=== PATIENT | female | born 1980 | race Hispanic/Latino ===

== ENCOUNTER 2022-01-30 00:01 | Emergency (ER) | payer OTHER ==
[~2022-01-30] VITALS: Ht 154.9 cm; Wt 63.5 kg
[~2022-01-30 00:01] MED LIST: LIDOP TP; ORPH-43 PO
[2022-01-30 00:07] VITALS: BP 115/82
[2022-01-30] MEDS ORDERED: OSEL75 PO (01:18)
[2022-01-30] MEDS ORDERED: OSELTAMIVIR PHOSPHATE 75 MG CAP PO SCH (01:30)
== END 2022-01-30 01:20 | disposition home or self-care (01) ==
LOC: EDH 00:01
DX: J10.1 Influenza due to other identified influenza virus with other respiratory manifestations (principal); Z20.822 Contact with and (suspected) exposure to COVID-19; M19.90 Unspecified osteoarthritis, unspecified site; M32.9 Systemic lupus erythematosus, unspecified; Z88.6 Allergy status to analgesic agent; Z88.8 Allergy status to other drugs, medicaments and biological substances; Z79.899 Other long term (current) drug therapy; Z98.890 Other specified postprocedural states
CPT/HCPCS: 87635; 87804 ×2; 99283; C9803

== ENCOUNTER 2024-03-28 17:28 | Emergency (ER) | payer OTHER ==
[~2024-03-28] VITALS: Ht 154.9 cm; Wt 70.3 kg
[~2024-03-28 17:28] MED LIST changes: -ORPH-43 PO; +ORPH100T4 PO; +OSEL75 PO
[2024-03-28 19:16] VITALS: BP 124/74; PULSE 91; RESP 18; O2SAT 97
[2024-03-28] MEDS: traMADol HCL 50 MG TABLET PO ONE (19:59)
== END 2024-03-28 20:12 | disposition home or self-care (01) ==
LOC: EDH 17:28
DX: S09.90XA Unspecified injury of head, initial encounter (principal); W10.9XXA Fall (on) (from) unspecified stairs and steps, initial encounter; Y93.89 Activity, other specified; Y92.89 Other specified places as the place of occurrence of the external cause; Y99.8 Other external cause status
CPT/HCPCS: 70450; 81025

== ENCOUNTER 2024-09-11 13:07 | Emergency (ER) | payer MEDICARE, OTHER ==
[~2024-09-11] VITALS: Ht 154.9 cm; Wt 70.3 kg
[2024-09-11 13:47] VITALS: BP 122/73; PULSE 124; RESP 18; TEMP 101.7
--- NOTE | 2024-09-11 14:10 | ERN ---
ED Note History of Present Illness Stated Complaint: FLU SYMPTOMS Chief Complaint: Cough Time Seen by MD: 13:36 Dictation: 43-year-old female with a history of MS, lupus, arthritis and DE presents to the ED for evaluation of headache onset last night. Patient is complaining of fever, cough, congestion, chronic right leg pain and back pain, but denies any other associated symptoms at this time. Patient reports her brother is sick with the flu. Allergies: Coded Allergies: ibuprofen (Unverified Allergy, Unknown, 04/02/19) natalizumab (Unverified Allergy, Unknown, 04/02/19) Home Meds Active Scripts Oseltamivir Phosphate (Tamiflu) 75 Mg Cap, 75 MG PO BID for 5 Days, #10 CAP Prov:GERTRUDE LOPEZ MD 09/11/24 Oseltamivir Phosphate (Tamiflu) 75 Mg Cap, 75 MG PO BID for 5 Days, #10 CAP Prov:JOSEPH LEIGH MD 01/30/22 Orphenadrine Citrate (Orphenadrine Citrate) 100 Mg Tablet.er, 100 MG PO [id number], #20 TAB 0 Refills Prov:MIKEL GOMEZ MD 09/04/21 Lidocaine (Lidoderm Patch 5%) 1 Patch Patch, 1 PATCH TP DAILY PRN for PAIN LEVEL 1 TO 5, #30 ADH.PATCH 0 Refills Prov:MIKEL GOMEZ MD 09/04/21 Past Medical History Past Medical History: Arthritis, DE, Other Additional Past Medical Hx: MS, LUPUS, Surgical History: Other Surgical History Other: THYRIOD, BLADDER LIFT Social History: ETOH, Lives with family History: Not Applicable LMP: Sep 07, 2024 Review of System Dictation Constitutional: Positive for fever negative for chills, and weight loss Eyes: Negative for injury, pain,redness, and discharge ENT: Positive for nasal congestion Negative for injury,pain or swelling Cardiovascular: Negative for chest pain, palpitations, and edema Respiratory: Positive for cough Negative for shortness of breath and wheezing, Abdomen/GI: Negative for abdominal pain, nausea, vomiting, diarrhea, and constipation Back: Negative for injury and pain : Negative for injury, bleeding and discharge MS/Extremity: Positive for chronic leg pain Negative for injury and deformity Skin: Negative for rash, and discoloration Neuro: Positive for headache negative for weakness, numbness, tingling, and seizure Psych: Negative for suicide ideation, homicidal ideation, and hallucinations Initial Vital Sign VS Vital Signs Date Time Temp Pulse Resp B/P (MAP) Pulse Ox O2 Delivery O2 Flow Rate FiO2 09/11/24 13:47 101.7 124 18 122/73 98 Room Air 0 Physical Exam Dictation General: awake, alert, patient is febrile Head/Face: Normocephalic, atraumatic Eyes: PERRL, EOMI, vision at baseline ENT: oral cavity clear, TMs clear, no signs of infection Neck: Trachea midline, supple, no nuchal rigidity Cardiovascular: Tachycardic, No MRGs, no JVD Respiratory: CTAB, no respiratory distress, No rales or wheezes Abdomen: Soft, non-tender, non-distended, normal bowel sounds, no guarding or rebound. Skin: Warm, dry, normal turgor, no rash MS/Extremity: Pulses equal, no cyanosis, neurovascular intact, FROM Neuro: COAx4, GCS 15, strength 5/5, CN 2-12 intact, normal cerebellar exam, normal gait, Psych: Normal behavior, mood, and affect normal Results (Laboratory/Radiology) Laboratory/Radiology Laboratory Tests Test 09/11/24 13:53 09/11/24 15:01 Influenza Type A Antigen Positive For Type A Influenza Type B Antigen Negative For Type B SARS-CoV-2, RNA, NAAT NEGATIVE SARS CoV-2 Group A Streptococcus Rapid negative (NEGATIVE) White Blood Count 10.3 K/uL (4.8-10.8) Red Blood Count 4.59 MIL/uL (4.00-5.50) Hemoglobin 12.3 g/dL (12.0-16.0) Hematocrit 38.3 % (36-48) Mean Corpuscular Volume 83.4 fL (79-99) Mean Corpuscular Hemoglobin 26.8 pg (27.0-33.0) L Mean Corpuscular Hemoglobin Concent 32.1 g/dL (32.0-36.0) Red Cell Distribution Width 14.6 % (11.0-15.5) Platelet Count 251 K/uL (130-400) Mean Platelet Volume 10.9 fL (7.5-10.5) H Immature Granulocyte % (Auto) 0.7 % (0-1) Neutrophils (%) (Auto) 91.1 % (40.0-77.0) H Lymphocytes (%) (Auto) 1.8 % (21.0-51.0) L Monocytes (%) (Auto) 6.0 % (3.0-13.0) Eosinophils (%) (Auto) 0.2 % (0.0-8.0) Basophils (%) (Auto) 0.2 % (0.0-5.0) Neutrophils # (Auto) 9.4 K/uL (1.8-7.7) H Lymphocytes # (Auto) 0.2 K/uL (1.0-4.8) L Monocytes # (Auto) 0.6 K/uL (0.1-1.0) Eosinophils # (Auto) 0.02 K/uL (0.00-0.70) Basophils # (Auto) 0.02 K/uL (0.00-0.20) Absolute Immature Granulocyte (auto 0.07 K/uL (0-1) Nucleated Red Blood Cells 0.0 % (0.0-0.19) White Cell Morphology Comment See comments Sodium Level 135 mmol/L (136-145) L Potassium Level 3.2 mmol/L (3.5-5.1) L Chloride Level 98 mmol/L (101-111) L Carbon Dioxide Level 27 mmol/L (21-32) Blood Urea Nitrogen 5 mg/dL (7-18) L Creatinine 0.7 mg/dL (0.5-1.0) Glomerular Filtration Rate Calc 111 mL/min (>90) Random Glucose 97 mg/dL (70-105) Lactic Acid Level 1.8 mmol/L (0.8-2.5) Total Calcium 8.9 mg/dL (8.5-10.1) Total Bilirubin 0.3 mg/dL (0.2-1.0) Direct Bilirubin 0.1 mg/dL (0.0-0.3) Aspartate Amino Transf (AST/SGOT) 19 U/L (10-37) Alanine Aminotransferase (ALT/SGPT) 22 U/L (12-78) Alkaline Phosphatase 89 U/L (50-136) Total Creatine Kinase 103 U/L (21-232) Troponin I High Sensitivity 8 ng/L (4-50) Total Protein 7.3 g/dL (6.0-8.3) Albumin 3.6 g/dL (3.5-5.0) Labs Reviewed?: Yes EKG Comment: EKG 09/11/2024 time 2:25 p.m. ventricular rate 116, LA 134, QRS D 87, QT 357. Sinus tachycardia, nonspecific T abnormalities, diffuse leads. No STEMI X-RAY Comment: REASON: fever ORDERING PHYSICIAN: GERTRUDE LOPEZ MD PROCEDURE: CXR1VW - CHEST 1VW Exam Type: CHEST 1VW Clinical Information: fever Comparison: None Findings: The lungs are clear of infiltrates. The heart is normal in size. The bony and soft tissue structures of the chest are unremarkable. Impression: Clear lungs. DICTATED BY: JOEL STARKEY MD DATE: 09/11/[address] Scan Comment: REASON: fever ORDERING PHYSICIAN: GERTRUDE LOPEZ MD PROCEDURE: HEAD WO - CT HEAD/BRAIN W/O CONTRAST Exam Type: CT HEAD/BRAIN W/O CONTRAST Clinical Information: fever Comparison: None CT Dose Index (CTDI): 57.33 mGy Dose Length Product (DLP): 956.79 total mGy-cm Findings: The examination is unremarkable. Montoya-white matter junction is preserved. No intra or extra axial lesions or fluid collections are seen. Specifically, montoya and white matter are normal in signal characteristics with normal caliber of ventricles and periventricular cisterns with no evidence of intra or or extra-axial hemorrhage, lacunar infarct, or major territorial infarct, mass, or other abnormality. There are no infarcts. There are no hemorrhages. Periventricular white matter locations are preserved. The orbital contents and structures of the posterior fossa are intact. Impression: Normal CT of the head. This study was performed using dose reduction techniques to include automated exposure control and/or adjustment of the mA and/or kV according to patient size. DICTATED BY: JOEL STARKEY MD DATE: 09/11/24 1444 ED Course ED Course Orders Procedure Category Date Status Time Covid Rna Naat LAB 09/11/24 Complete 13:53 Influenza Type A & B, LAB 09/11/24 Complete Rapid 13:53 Rapid (Group A Strep) LAB 09/11/24 Complete 13:53 12 Lead Ekg Tracing- EKG 09/11/24 Complete Technical 14:14 Basic Metabolic Panel LAB 09/11/24 Complete 14:14 Blood Cult LENIN 09/11/24 In Process 14:14 Cbc With Differential LAB 09/11/24 Complete 14:14 Hepatic Function Panel LAB 09/11/24 Complete 14:14 Creatine Kinase, Total LAB 09/11/24 Complete 14:14 Lactic Acid LAB 09/11/24 Complete 14:14 Troponin I High LAB 09/11/24 Complete Sensitivity 14:14 Urinalysis Profile LAB 09/11/24 Logged 14:14 Chest 1vw RAD 09/11/24 Resulted 14:14 Ct Head/Brain W/O CT 09/11/24 Resulted Contrast 14:14 Ceftriaxone 2gm Vial PHA 09/11/24 Complete (Rocephin 2gm Inj) 14:30 0.9%Nacl 1000ml (Ns PHA 09/11/24 Complete 1000ml) 14:30 Current Medications Medications (Trade) Dose Ordered Sig/Mirlande Route PRN Reason Start Time Stop Time Status Last Admin Dose Admin Ceftriaxone Sodium (Rocephin 2gm Inj) 2 gm ONCE ONCE IVPB 09/11/24 14:30 09/11/24 14:31 DC Sodium Chloride 1,000 ml @ 0 mls/hr ONCE ONCE IV 09/11/24 14:30 09/11/24 14:31 DC Vital Signs Date Time Temp Pulse Resp B/P (MAP) Pulse Ox O2 Delivery O2 Flow Rate FiO2 09/11/24 13:47 101.7 124 18 122/73 98 Room Air 0 Medical Decision Making MDM MDM: Differential diagnosis: Fever, viral syndrome, influenza Rationale: Tests considered and ordered secondary to shared decision making include: labs, ECG and radiology Risk of complication and/or morbidity or mortality of patient management: None Medications-Per medication reconciliation Need for hospitalization: Patient does meet criteria for hospitalization. Need for emergency major/minor surgery: No There are no social concerns with this patient. Prescription drug management Prescriptions will include symptomatic care I independently interpreted the test that were performed, results were reviewed by me and considered findings on radiology if ordered. Medical management and examination interpretation discussions were had by me with other qualified healthcare professionals as indicated for the patient's care. DX & DISP Disposition: Discharge Departure Impression: Primary Impression: Influenza A Condition: Stable Scripts Oseltamivir Phosphate (Tamiflu) 75 Mg Cap 75 MG PO BID for 5 Days, #10 CAP Prov: GERTRUDE LOPEZ MD 09/11/24 Referrals: SELF,REFERRAL (PCP) GERTRUDE LOPEZ MD Sep 11, 2024 14:10
[2024-09-11 14:21] LABS: RAPID GROUP A STREP negative (NEGATIVE)
[2024-09-11 14:25] LABS: SARS-CoV-2, RNA, NAAT NEGATIVE SARS CoV-2 (NEGATIVE)
--- NOTE | 2024-09-11 14:28 | EKG ---
[facility] Test Date: 2024-09-11 Test Time: 14:25:22 Pat Name: SUZANNE HINKLE Department: ED Room: Gender: F [employer]rel [employer] Machine: 08 : 1980 Requested By: GERTRUDE LOPEZ Order Number: [id number] Reading MD: Darinel Worley Measurements Intervals [place] Rate: 116 P: 58 TX: 134 QRS: 28 QRSD: 87 T: 265 QT: 357 QTc: 495 Interpretive Statements Sinus tachycardia Nonspecific T abnormalities, diffuse leads No previous ECG available for comparison Electronically Signed On 09-11-2024 18:25:44 C 40A CREW CHIEF by Darinel Worley Please click the below link to view image of tracing.
[2024-09-11 14:29] LABS: INFLUENZA TYPE B Negative For Type B (NEGATIVE)
[2024-09-11] MEDS: CEFTRIAXONE 2GM VIAL IVPB ONE (14:30)
[2024-09-11] MEDS: 0.9%NACL 1000ML 1,000 ML IV ONE (14:30)
[2024-09-11 14:38] LABS: INFLUENZA TYPE A Positive For Type A (NEGATIVE)
--- NOTE | 2024-09-11 14:48 | HMCIMG ---
Exam Type: CT HEAD/BRAIN W/O CONTRAST Clinical Information: fever Comparison: None CT Dose Index (CTDI): 57.33 mGy Dose Length Product (DLP): 956.79 total mGy-cm Findings: The examination is unremarkable. Montoya-white matter junction is preserved. No intra or extra axial lesions or fluid collections are seen. Specifically, montoya and white matter are normal in signal characteristics with normal caliber of ventricles and periventricular cisterns with no evidence of intra or or extra-axial hemorrhage, lacunar infarct, or major territorial infarct, mass, or other abnormality. There are no infarcts. There are no hemorrhages. Periventricular white matter locations are preserved. The orbital contents and structures of the posterior fossa are intact. Impression: Normal CT of the head. This study was performed using dose reduction techniques to include automated exposure control and/or adjustment of the mA and/or kV according to patient size.
--- NOTE | 2024-09-11 15:18 | HMCIMG ---
Exam Type: CHEST 1VW Clinical Information: fever Comparison: None Findings: The lungs are clear of infiltrates. The heart is normal in size. The bony and soft tissue structures of the chest are unremarkable. Impression: Clear lungs.
[2024-09-11 15:50] LABS: BASOPHILS # (AUTO) 0.02 K/uL (0.00-0.20); BASOPHILS % (AUTO) 0.2 % (0.0-5.0); EOSINOPHILS # (AUTO) 0.02 K/uL (0.00-0.70); EOSINOPHILS % (AUTO) 0.2 % (0.0-8.0); HEMATOCRIT 38.3 % (36-48); IMMATURE GRANULOCYTE ABSOLUTE 0.07 K/uL (0-1); LYMPHOCYTES # (AUTO) 0.2 K/uL (1.0-4.8); LYMPHOCYTES % (AUTO) 1.8 % (21.0-51.0); MEAN CORPUSCULAR HEMOGLOBIN 26.8 pg (27.0-33.0); MEAN CORPUSCULAR HGB CONC 32.1 g/dL (32.0-36.0); MEAN CORPUSCULAR VOLUME 83.4 fL (79-99); MONOCYTES # (AUTO) 0.6 K/uL (0.1-1.0); NEUTROPHILS # (AUTO) 9.4 K/uL (1.8-7.7); NEUTROPHILS % (AUTO) 91.1 % (40.0-77.0); PLATELET COUNT (AUTO) 251 K/uL (130-400); RED BLOOD CELL COUNT(AUTO) 4.59 MIL/uL (4.00-5.50); RED CELL DISTRIBUTION WIDTH 14.6 % (11.0-15.5); WHITE BLOOD COUNT (AUTO) 10.3 K/uL (4.8-10.8)
[2024-09-11 15:58] LABS: CREATININE 0.7 mg/dL (0.5-1.0); POTASSIUM 3.2 mmol/L (3.5-5.1)
[2024-09-11 16:02] LABS: ALBUMIN 3.6 g/dL (3.5-5.0); BILIRUBIN,DIRECT 0.1 mg/dL (0.0-0.3); BILIRUBIN,TOTAL 0.3 mg/dL (0.2-1.0); TOTAL PROTEIN, SERUM 7.3 g/dL (6.0-8.3)
[2024-09-11] MEDS ORDERED: OSEL75 PO (17:39)
== END 2024-09-11 19:13 | disposition home or self-care (01) ==
LOC: EDH 13:07
DX: J10.1 Influenza due to other identified influenza virus with other respiratory manifestations (principal); M19.90 Unspecified osteoarthritis, unspecified site; Z79.899 Other long term (current) drug therapy; Z88.6 Allergy status to analgesic agent; Z20.822 Contact with and (suspected) exposure to COVID-19
CPT/HCPCS: 36415; 70450; 71045; 80048; 80076; 82550; 83605; 84484; 85025; 87040; 87635; 87804; 87880; 93005; 99285

== ENCOUNTER 2024-12-20 20:14 | Emergency (ER) | payer MEDICARE ==
[~2024-12-20] VITALS: Ht 154.9 cm; Wt 75.7 kg
[2024-12-20] MEDS: HYDROcodone/APAP 5/325 1 TAB TABLET PO ONE (20:42)
--- NOTE | 2024-12-20 20:53 | HMCIMG ---
Exam Type: ANKLE COMP 3VWS RT Clinical Information: INJURY SWELLING Comparison: None Findings: Routine views of the ankle reveal no evidence of acute fracture or dislocation. The ankle mortise is intact. There is soft tissue swelling over the lateral malleolus consistent with inversion injury. IMPRESSION: Evidence of inversion injury.
--- NOTE | 2024-12-20 21:15 | ERN ---
ED Note History of Present Illness Stated Complaint: C/O PAIN WITH SWELLING TO RIGHT ANKLE Chief Complaint: Ankle Problem Time Seen by MD: 20:17 Time Seen by Midlevel: 20:17 Dictation: The patient is a 44-year-old female with a history of multiple sclerosis, lupus, arthritis who presents to the emergency department with complaints of right ankle pain after she accidentally misstepped and twisted about an hour prior to arrival. Patient denies any other injuries. Allergies: Coded Allergies: ibuprofen (Unverified Allergy, Unknown, 04/02/19) natalizumab (Unverified Allergy, Unknown, 04/02/19) Home Meds Active Scripts Oseltamivir Phosphate (Tamiflu) 75 Mg Cap, 75 MG PO BID for 5 Days, #10 CAP Prov:GERTRUDE LOPEZ MD 09/11/24 Oseltamivir Phosphate (Tamiflu) 75 Mg Cap, 75 MG PO BID for 5 Days, #10 CAP Prov:JOSEPH LEIGH MD 01/30/22 Orphenadrine Citrate (Orphenadrine Citrate) 100 Mg Tablet.er, 100 MG PO [id number], #20 TAB 0 Refills Prov:MIKEL GOMEZ MD 09/04/21 Lidocaine (Lidoderm Patch 5%) 1 Patch Patch, 1 PATCH TP DAILY PRN for PAIN LEVEL 1 TO 5, #30 ADH.PATCH 0 Refills Prov:MIKEL GOMEZ MD 09/04/21 Past Medical History Past Medical History: Other Additional Past Medical Hx: HX OF MS, HX OF LUPUS Surgical History: Other Surgical History Other: HERNIATED DISC SX; BLADDER LIFT Social History: ETOH, Lives with family History: Not Applicable LMP: December 20, 2024 RN Note Reviewed/Agreed w/PFSH: Yes Review of System Dictation Constitutional: Negative for fever,chills, and weight loss Eyes: Negative for injury, pain,redness, and discharge ENT: Negative for injury,pain or swelling Cardiovascular: Negative for chest pain, palpitations, and edema Respiratory: Negative for shortness of breath, cough, and wheezing, Abdomen/GI: Negative for abdominal pain, nausea, vomiting, diarrhea, and c onstipation Back: Negative for injury and pain : Negative for injury, bleeding and discharge MS/Extremity: Positive for right ankle pain, swelling, injury Skin: Negative for rash, and discoloration Neuro: Negative for headache, weakness, numbness, tingling, and seizure Psych: Negative for suicide ideation, homicidal ideation, and hallucinations Initial Vital Sign VS Vital Signs Date Time Temp Pulse Resp B/P (MAP) Pulse Ox O2 Delivery O2 Flow Rate FiO2 12/20/24 20:17 97.0 56 20 126/73 97 Room Air Physical Exam Dictation Vital Signs reviewed General Appearance: Alert, oriented x 3, no acute distress, well developed, nourished. Head and Face: non-traumatic. Eyes: PERRL, pink conjunctivas, eyelid no trauma, anterior chamber with arcus senilis. Ears: Pinnas intact and no signs of trauma or erythema ear canals clear and no discharge TM no erythema Nose: No discharge, no bleeding. Oropharynx: Mouth normal, tongue pink. pharynx clear,no erythema, tonsils no exudates, no abscesses noted, mucous membrane moist Neck: Supple, non-tender, no thyromegaly, no masses, no JVD, no bruits Breast:Deferred Chest:No tenderness, no crepitus, no paradoxical movement, no retractions Lungs:Clear, well-ventilated, symmetric, no rales, no wheezing, no rhonchi, no stridor, good breath sounds bilaterally Heart: Regular rate, regular rhythm, no murmur, no gallops Vascular: no peripheral edema, dorsalis pedis pulses 3+ bilaterally Abdomen: Soft, positive bowel sounds, nondistended, no guarding, nontender, no rebound, no masses no hepatomegaly, no splenomegaly, no Crooks's sign, no hernias. Rectal: Deferred Genital: Deferred Neurological: Normal speech, motor function intact, sensory function intact Musculoskeletal: Neck nontender, full range of motion, back nontender, full range of motion, Extremities: nontender, full range of motion, mild swelling to lateral aspect of ankle, no deformity, cap refill less than 2 seconds, full range of motion Skin: Color pink, dry, no turgor, no rash, no lacerations, no abrasions, no contusions. Lymphatic: Deferred Results (Laboratory/Radiology) Laboratory/Radiology REASON: INJURY SWELLING ORDERING PHYSICIAN: ALYCIA NUNES PROCEDURE: [id number] - ANKLE COMP 3VWS RT Exam Type: ANKLE COMP 3VWS RT Clinical Information: INJURY SWELLING Comparison: None Findings: Routine views of the ankle reveal no evidence of acute fracture or dislocation. The ankle mortise is intact. There is soft tissue swelling over the lateral malleolus consistent with inversion injury. IMPRESSION: Evidence of inversion injury. Labs Reviewed?: Yes ED Course ED Course Orders Procedure Category Date Status Time Ankle Comp 3vws Rt RAD 12/20/24 Resulted 20:24 Hydrocodone/Apap PHA 12/20/24 Complete 5/325 (Kiln 5/325mg) 21:00 Current Medications Medications (Trade) Dose Ordered Sig/Mirlande Route PRN Reason Start Time Stop Time Status Last Admin Dose Admin Acetaminophen/ Hydrocodone Bitart (NORco 5/325MG) 1 tab ONCE ONCE PO 12/20/24 21:00 12/20/24 21:01 DC 12/20/24 20:42 Vital Signs Date Time Temp Pulse Resp B/P (MAP) Pulse Ox O2 Delivery O2 Flow Rate FiO2 12/20/24 20:17 97.0 56 20 126/73 97 Room Air Medical Decision Making MDM The patient is a 44-year-old female with a history of multiple sclerosis, lupus, arthritis who presents to the emergency department with complaints of right ankle pain after she accidentally misstepped and twisted about an hour prior to arrival. Patient denies any other injuries. Ankle x-ray showed no acute fractures. Swelling over the lateral malleolus consistent with inversion injury. Patient neurovascularly intact. Good distal pulses. We will be discharged to follow up with orthopedic. Differential diagnosis: Ankle fracture, sprain ankle, ankle dislocation Need for hospitalization: Patient does not meet criteria for hospitalization. There are no social concerns with this patient. DX & DISP Disposition: Discharge Departure Impression: Primary Impression: Right ankle sprain Condition: Stable Additional Instructions: Your x-ray showed no fractures. You have an ankle sprain. Please follow up with your primary doctor in 1-2 days. If symptoms worsen please return to ER. FOLLOW-UP WITH PRIMARY CARE PROVIDER IN 1 TO 2 DAYS. TAKE MEDICATIONS DIRECTED HERE IN THE EMERGENCY ROOM. OKAY TO CONTINUE HOME MEDICATIONS UNLESS OTHERWISE DISCUSSED DURING YOUR VISIT IN THE EMERGENCY ROOM TODAY. RETURN TO YOUR NEAREST EMERGENCY ROOM IF SYMPTOMS WORSEN OR IF THERE IS NO IMPROVEMENT. CALL 911 IF YOU NEED IMMEDIATE ASSISTANCE. TAKE TYLENOL [id number] NEEDED AND IF NO CONTRAINDICATIONS ARE PRESENT. INCREASE ORAL HYDRATION. A WOUND CULTURE OR URINE CULTURE WAS ORDERED HERE IN THE EMERGENCY ROOM DEPARTMENT PLEASE FOLLOW-UP WITH PRIMARY CARE PROVIDER AND ADVISE THEM TO GET REPEAT PORTS FROM OUR FACILITY. IF YOU HAD ANY REMIGIO WRAP/SPLINTS THAT WERE APPLIED HERE, PLEASE DO NOT REMOVE THEM UNTIL YOU SEE YOUR PRIMARY CARE OR SPECIALTY. Referrals: SELF,REFERRAL (PCP) ZAHRA BATISTA MD Time of Disposition: 21:13 I have reviewed the case, and I agree with, Diagnosis and Plan ALYCIA NUNES CRAFT COORDINATOR December 20, 2024 21:15
[2024-12-20 21:29] VITALS: BP 115/73; PULSE 79; RESP 19; TEMP 97.9; O2SAT 99
== END 2024-12-20 21:30 | disposition home or self-care (01) ==
LOC: EDH 20:14
DX: S93.491A Sprain of other ligament of right ankle, initial encounter (principal); Z79.899 Other long term (current) drug therapy; Z88.6 Allergy status to analgesic agent; Z98.890 Other specified postprocedural states; X50.1XXA Overexertion from prolonged static or awkward postures, initial encounter; Y93.01 Activity, walking, marching and hiking; Y92.89 Other specified places as the place of occurrence of the external cause; Y99.8 Other external cause status
CPT/HCPCS: 73610; 99284